=== PATIENT | female | born 1950 | race Two or more races ===

== ENCOUNTER 2019-12-30 12:00 | Outpatient (CLI) | payer OTHER | END 2019-12-30 12:05 | disposition home or self-care (01) | LOC: LAB 12:00 | PROVIDERS: ATTEND Plastic Surgery | DX: D68.8 Other specified coagulation defects (principal); Z01.812 Encounter for preprocedural laboratory examination ==

== ENCOUNTER 2022-08-24 07:47 | Outpatient (CLI) | payer OTHER | END 2022-08-24 07:48 | disposition home or self-care (01) | LOC: NUCLEAR 07:47 | PROVIDERS: ATTEND Internal Medicine | DX: I25.10 Atherosclerotic heart disease of native coronary artery without angina pectoris (principal) | CPT/HCPCS: 78452; 93017; A9500 ==